=== PATIENT | female | born 2000 | race Caucasian/White ===

== ENCOUNTER 2024-01-25 13:14 | Outpatient (CLI) | payer OTHER, MEDICAID, SELFPAY ==
[2024-01-25 14:43] LABS: Hematocrit 36.4 % (37.0-47.0); Hemoglobin 11.5 g/dL (12.0-15.0); Immature Platelet Fraction Pct 17.7 % (0.9-11.2); Mean Corpuscular HGB Conc 31.6 g/dl (32-36); Mean Corpuscular Hemoglobin 26.3 pg (26-34); Mean Corpuscular Volume 83.1 fl (80-100); Mean Platelet Volume 13.5 fl (7.4-10.4); Platelet Count Result 134 k/mm3 (150-375); Red Blood Count 4.38 M/mm3 (4.2-5.4); White Blood Count 11.2 K/mm3 (4.5-10.0)
[2024-01-26 16:01] LABS: Rapid Plasma Reagin Non-Reactive (NonReactive)
== END 2024-01-25 13:15 | disposition home or self-care (01) ==
LOC: ANHLAB 13:16
PROVIDERS: Visit Provider Obstetrics & Gynecology
DX: O82 Encounter for cesarean delivery without indication (principal); Z3A.00 Weeks of gestation of pregnancy not specified
CPT/HCPCS: 36415; 85027; 85055; 86592; 86850; 86900; 86901

== ENCOUNTER 2024-01-26 05:26 | Inpatient (IN) | payer OTHER, MEDICAID, SELFPAY ==
[2024-01-26] VITALS (45 sets, daily range): BP systolic 110–172; BP diastolic 63–125; PULSE 50–114; RESP 14–18; TEMP 36.4–36.9; O2SAT 92–100; BMI 31.5
[2024-01-26] MEDS: ACETAMINOPHEN 500 MG TABLET 1000 MG PO (06:01)
[2024-01-26] MEDS: LACTATED RINGERS 1,000 ML 125 ML IV CONT ×2 (06:02→07:15)
--- NOTE | 2024-01-26 06:12 | LDADM ---
This patient, Mary Jo Oliver, was admitted to Labor/Delivery/Recovery 120 on 01/26/24 at 05:26. Plans for labor, pain management and were discussed with patient. Patient/family oriented to hospital policies and general routines including ID bracelet, bed and alarms, visiting hours, pain management, procedures, bathroom and other care routines, personal items, smoking policy, room service/diet and guest tray routines, infant security routines, and visiting hours. Patient/Family are encouraged to report perceived risks to care and to ask questions if they do not understand what they are told or what they should do. See OBIX for further documentation.
[2024-01-26 07:02] LABS: HIV 1/2 Ab P24 Ag Result Negative (Negative)
--- NOTE | 2024-01-26 07:13 | P.PNAN_ITS ---
Anes - Initial Pre Proc Eval Procedure: Operation Date: 01/26/24 07:30 Proposed Procedures p Section - Narciso Jung MD Date/Time: 01/26/24 07:13 Surgeon: Narciso Jung MD Pre Op Diagnosis: C/S Patient Data Age: 23 Gender: F Height: 1.57 m Weight: 78.25 kg Last Vital Signs Pulse 67 01/26/24 07:00 BP 138/89 01/26/24 07:00 O2 Del Method Room Air 01/26/24 06:12 Allergies Allergy/AdvReac Type Severity Reaction Status Date / Time No Known Allergies Allergy Verified 01/18/24 15:36 Home Medications Medication Instructions Recorded Confirmed Type prenat.vits,radha,kty-vmda-cwpid 1 tablet 01/18/24 History valacyclovir 500 mg tablet 500 mg PO Q12H 01/18/24 01/18/24 History Laboratory Tests 01/26/24 06:07 HIV 1&2 Ab/P24 Ag 4thGn Negative (Negative) Patient hx anesthesia problems: none Family hx anesthesia problems: none Results Review: All pre-operative results and documents have been reviewed as part of the pre- operative evaluation. [facility] Family History Family History Other Patient denies significant medical history Social History Social History Smoking status: Former smoker Tobacco type: e-cigarettes/vaping Second hand tobacco smoke exposure: No Smoking end date: 06/01/23 Substance use: never Do You Feel Safe in your Home?: Yes Lack of Transportation: No Lack of Food: Never True Current Housing: I Have Housing Concerned About Future Housing: No Difficulty Paying Gas/Electric Bills: No Difficulty Paying for Meds: No Currently Unemployed: No Education: High School Diploma/GED Difficulty w/ Childcare or Family Care: No Spiritual care concerns: No Anes - Eval Final PreProcedure Day of Procedure 01/26/24 07:13 Patient weight: overweight Heart: regular rate and rhythm Lungs: clear to auscultation Airway: Mallampati scale class II Neurological: alert and oriented Last oral intake: >/= 8 hours ASA classification: II Emergent: no Anesthetic plan: proceed Anesthesia type and monitoring: regional spinal and standard monitoring Results Review: All pre-operative results and documents have been reviewed as part of the pre- operative evaluation. Informed Consent: The patient's anesthetic plan and its attendant risks and benefits were discussed with the patient/family/POA. Questions were solicited and answers provided to the satisfaction of the patient/family/POA.
--- NOTE | 2024-01-26 07:21 | PM.IMHP ---
H&P: HPI History of Present Illness Date/Time: 01/26/24 07:21 Chief Complaint: Term Narrative: this patient is a 23-year-old female, 1 at term with recent herpes outbreak. We agreed to perform delivery. The patient understands the details of the procedure. The procedure has been explained in detail. She understands the risks. She understands that injuries may occur that result in hospitalization, more surgery, and severe illness. She understands risk of hemorrhage and infection. She denies any chest pain or shortness of breath. She denies any nausea, vomiting, fever, chills. Review of Systems Review of Systems: All systems reviewed & are unremarkable except as noted in HPI and below Constitutional: Constitutional: Denies chills, Denies fatigue, Denies fever(s) and Denies weakness Eyes: Eyes: Denies blurry vision, Denies change in vision, Denies loss of peripheral vision, Denies loss of vision, Denies other visual disturbances and Denies eye pain ENT: Denies vertigo, Denies dizziness, Denies hearing loss, Denies mouth pain, Denies nasal obstruction, Denies neck mass and Denies neck pain Cardiovascular: Cardiovascular: Denies chest pain, Denies diaphoresis, Denies syncope, Denies leg edema and Denies dyspnea Respiratory: Respiratory: Denies chest congestion, Denies cough, Denies hemoptysis, Denies dyspnea and Denies wheezing Gastrointestinal: Gastrointestinal: Denies abdominal pain, Denies constipation, Denies diarrhea, Denies nausea and Denies vomiting Genitourinary: Genitourinary: Denies hematuria, Denies change in libido, Denies nocturia, Denies genital lesions, Denies flank pain and Denies urinary urgency Musculoskeletal: Musculoskeletal: Denies abnormal gait, Denies back pain, Denies myalgias, Denies arthralgias, Denies joint swelling, Denies muscle weakness and Denies neck pain Integumentary/Breasts: Skin/Breast: Denies swelling, Denies breast pain, Denies breast mass, Denies dry skin, Denies nipple discharge, Denies unusual bruising and Denies jaundice Neurologic: Denies Neuro-related abnormal movements, Denies Abnormal speech present, Denies abnormal gait, Denies behavioral changes, Denies confusion, Denies vertigo, Denies dizziness, Denies syncope, Denies loss of vision, Denies memory loss, Denies convulsions and Denies weakness Psychiatric: Psychiatric: Denies abnormal sleep pattern, Denies behavioral changes, Denies change in libido, Denies confusion, Denies depression, Denies anhedonia and Denies memory loss Endocrine: Endocrine: Reports no additional endocrine complaints, Denies change in libido and Denies fatigue Hematologic/Lymphatic: Hematologic/Lymphatic: Reports no additional hematologic/lymphatic complaints Allergic/Immunologic: Allergic/Immunologic: Reports no additional allergic/immunologic complaints and Denies wheezing PMF Family History Family History Other Patient denies significant medical history Social History Social History Smoking status: Former smoker Tobacco type: e-cigarettes/vaping Second hand tobacco smoke exposure: No Smoking end date: 06/01/23 Substance use: never Do You Feel Safe in your Home?: Yes Lack of Transportation: No Lack of Food: Never True Current Housing: I Have Housing Concerned About Future Housing: No Difficulty Paying Gas/Electric Bills: No Difficulty Paying for Meds: No Currently Unemployed: No Education: High School Diploma/GED Difficulty w/ Childcare or Family Care: No Spiritual care concerns: No Meds Home Medications and Allergies Home Medications Medication Instructions Recorded Confirmed Type prenat.vits,radha,abr-lykh-ztmhv 1 tablet 01/18/24 History valacyclovir 500 mg tablet 500 mg PO Q12H 01/18/24 01/18/24 History Allergies Allergy/AdvReac Type Severity Reaction Statu
[2024-01-26] MEDS: FAMOTIDINE 20 MG/2 ML VIAL IV PUSH (07:22)
[2024-01-26] MEDS: ONDANSETRON INJ 4 MG/2 ML VIAL IV PUSH (07:22)
[2024-01-26] MEDS: ceFAZolin 2 GM/D5W 50 ML 2 GM/50 ML BAG IVPB (07:25)
[2024-01-26] MEDS: OXYTOCIN 30 UNITS/NS 500 ML 30 UNITS/500 ML BAG 125 UNITS IV CONT (09:40)
[2024-01-26] MEDS: ACETAMINOPHEN 325 MG TABLET 650 MG PO ×2 (11:53→18:36)
[2024-01-26] MEDS: KETOROLAC 15 MG/ML VIAL (*BKC) IV PUSH ×2 (11:54→18:39)
[2024-01-26] MEDS: LIDOCAINE 5% PATCH 1 PATCH TRANSDERM (11:55)
[2024-01-26] MEDS: SIMETHICONE 80 MG TAB.CHEW PO ×2 (11:55→18:39)
[2024-01-26] MEDS: valACYclovir HCL 500 MG TABLET PO ×2 (11:55→21:45)
--- NOTE | 2024-01-26 12:54 | OBPPTRN ---
1113 Patient transferred to post room #285 via stretcher. Support person present. Oriented to unit, room, information board, rooming in, admission packet and security measures. Patient verbalizes understanding.
[2024-01-26] MEDS: DEXTROSE 5%/0.45% SOD CHL 1,000 ML 125 ML IV CONT (14:49)
--- NOTE | 2024-01-26 15:09 | PC.NURSE ---
1400 Introductions were made, then consulted with patient to assess needs related to . Mother led the conversation with her?plans to feed?her and the?experience so far as baby is currently in the level 2 nursery. Encouraged understanding of the benefits of skin to skin (demonstrating unwrapping and placing upright on her chest), stimulating with massage touch, changing positions to encourage wakefulness, how to watch for early feeding cues, responsive feeding, feeding on demand (aiming for 8-12 times in 24 hours, about every 2-3 hours), milk production, building/maintaining a milk supply, duration of feeding, signs of adequate intake/output and how to record on the feeding sheet. Mother voiced understanding and wishes to begin pumping to establish milk supply. Resources used for education were facilitated with the [visual educational handouts/ tool/mom and baby guide], Inpatient/outpatient resources provided with feeding sheet, name written on the communication board, and the mom/baby guide. Parents voiced understanding of information, and will call if there is a request for assistance. Reported to the Primary RN.
[2024-01-26] MEDS: DOCUSATE SODIUM 100 MG CAPSULE PO (18:36)
--- NOTE | 2024-01-26 19:30 | PC.NURSE ---
Patient transported via wheelchair to [facility] at this time to visit with .
--- NOTE | 2024-01-26 20:48 | PC.NURSE ---
Patient returned to room #281 via wheelchair at this time and transferred to bed.
[2024-01-27] MEDS: KETOROLAC 15 MG/ML VIAL (*BKC) IV PUSH ×2 (01:21→07:16)
[2024-01-27] MEDS: ACETAMINOPHEN 325 MG TABLET 650 MG PO ×4 (01:22→23:30)
[2024-01-27 04:40] VITALS: BP 122/79; PULSE 77; RESP 18; TEMP 36.8; O2SAT 98
[2024-01-27] MEDS: HYDROcodone/acetaminophen (*CRX) 5-325 MG TABLET 1 TAB PO ×4 (04:44→21:07)
[2024-01-27 05:04] LABS: Basophils Percent Auto 0.3 % (0.2-1.2); Eosinophils Percent Auto 0.3 % (0-4.4); Hematocrit 29.9 % (37.0-47.0); Hemoglobin 9.7 g/dL (12.0-15.0); Immature Granulocyte Absolute 0.05 K/mm3 (0.00-0.031); Immature Granulocyte Percent A 0.5 % (0-0.5); Lymphocytes Percent Auto 23.1 % (18.3-44.2); Mean Corpuscular HGB Conc 32.4 g/dl (32-36); Mean Corpuscular Hemoglobin 26.7 pg (26-34); Mean Corpuscular Volume 82.4 fl (80-100); Mean Platelet Volume 12.7 fl (7.4-10.4); Monocytes Absolute Auto 0.7 K/mm3 (0.1-0.6); Neutrophils Absolute Auto 7.2 K/mm3 (1.3-6.7); Neutrophils Percent Auto 68.8 % (45.5-73.1); Platelet Count Result 103 k/mm3 (150-375); Red Blood Count 3.63 M/mm3 (4.2-5.4); White Blood Count 10.4 K/mm3 (4.5-10.0)
[2024-01-27] MEDS: DOCUSATE SODIUM 100 MG CAPSULE PO ×2 (07:15→16:25)
[2024-01-27] MEDS: POLYSACCHARIDE IRON COMPLEX 150 MG CAPSULE PO ×2 (07:15→16:25)
[2024-01-27] MEDS: MULTIVIT/MIN/PREN/FOL AC/IRON TABLET 1 TAB PO (07:15)
[2024-01-27] MEDS: valACYclovir HCL 500 MG TABLET PO ×2 (07:15→21:08)
[2024-01-27] MEDS: SIMETHICONE 80 MG TAB.CHEW PO ×3 (07:16→16:25)
[2024-01-27 07:50] VITALS: BP 120/85; PULSE 58; RESP 18; TEMP 36.6; O2SAT 100
--- NOTE | 2024-01-27 11:27 | PC.NURSE ---
[id number]. Introductions were made, then consulted with patient to assess needs related to . Mother led the conversation with her?plans to feed?her and the?experience so far. Encouraged understanding of the benefits of skin to skin, stimulating with massage touch, changing positions to encourage wakefulness, how to watch for early feeding cues, responsive feeding, feeding on demand (aiming for 8-12 times in 24 hours, about every 2-3 hours), milk production, building/maintaining a milk supply, duration of feeding, signs of adequate intake/output and how to record on the feeding sheet. Mother works well with her with encouragement and education. Reviewed positioning and ear, shoulder, hip alignment, supporting the breast to facilitate a deep latch, asymmetrical latch (off-center), leading with the chin with a big, open, wide gape and body close to mother. Infant latched optimally to the Right breast in cross cradle position. Education given to the mother of how to visualize the suckling (with good rocking jaw motion), swallows (dropping of the lower jaw) and how to listen for drinking at the breast (the ka sound). was [able/unable] to maintain latch without pain to mother protecting the nipple with optimal positioning and latching. Reviewed comfort measures of healing with a warm, wet washcloth to rinse breast, then leave open to air-dry, good handwashing when or touching the breast/nipples to prevent infection. Mother voiced understanding of talking to infant to encourage if it has been 2 -2.5 hours since the start of the last , to call if does not latch, or if there is discomfort with . Resources used for education were facilitated with the visual educational handouts. Inpatient resources provided with feeding sheet, name written on the communication board, and the mom/baby guide. Parents voiced understanding of information, demonstrated learning and will call if there is a request for assistance. Reported to the Primary RN.
--- NOTE | 2024-01-27 14:20 | WPDANLDPN2 ---
Anes-Prog Note L&D Date/Time: 01/27/24 14:20 Comfortable throughout: section Neuraxial method: spinal Epidural/Spinal procedure site: clean & non-tender Neuro status: Neuro function grossly intact. Cardiovascular status: normal Respiratory status: normal Airway patency: baseline Mental status: baseline Post-Op hydration status: normal Vital Signs: Last Vital Signs Temp 36.6 C 01/27/24 07:50 Pulse 58 L 01/27/24 07:50 Resp 18 01/27/24 07:50 BP 120/85 01/27/24 07:50 Pulse Ox 100 01/27/24 07:50 O2 Del Method Room Air 01/26/24 16:50 Pain score (VAS): 2/10 I/O: Intake & Output 01/26/24 01/27/24 01/27/24 23:59 07:59 15:59 Intake Total 2100 Output Total 400 1450 Balance 1700 -1450 Post-procedural complaints: none Patient feedback: Patient satisfied with anesthetic care.
--- NOTE | 2024-01-27 14:20 | WPDANLDNPN2 ---
Anes-Prog Note L&D-Neuraxial Date/Time: 01/27/24 14:20 Neuraxial medications: intrathecal PF morphine Opiod-related complaints: none Patient feedback: Patient satisfied with post-operative pain management.
[2024-01-27] MEDS: IBUPROFEN 600 MG TABLET PO ×2 (17:50→23:30)
[2024-01-27 21:07] VITALS: BP 112/61; PULSE 68; RESP 18; TEMP 36.8; O2SAT 100
[2024-01-27] MEDS: LIDOCAINE 5% PATCH 1 PATCH TRANSDERM (21:07)
[2024-01-28] MEDS: ACETAMINOPHEN 325 MG TABLET 650 MG PO ×4 (04:56→22:44)
[2024-01-28] MEDS: IBUPROFEN 600 MG TABLET PO ×4 (04:56→22:44)
--- NOTE | 2024-01-28 05:13 | PC.NURSE ---
Upon rounding patient stated that its been 3 1/2 hours since last ate and that she wants to pump at this time and feed what she gets from pumping instead of putting infant to breast. Answered any questions patient had and patient verbalized understanding. Encouraged patient to call out if assistance is needed or if infant has trouble feeding.
[2024-01-28 08:00] VITALS: BP 127/89; PULSE 63; RESP 16; TEMP 36.9; O2SAT 100
--- NOTE | 2024-01-28 08:40 | PM.OBPNVD ---
OB - PN: Subj Subjective Date/time seen: 01/28/24 08:40 Patient comments: no complaints, pain well controlled, incisional pain, tolerating diet and flatus present OB - PN: Obj Data Labs 01/27/24 04:53 OB - PN A/P Plan day: 2 Plan: routine care Comments: POD#2 LTCS - no problems, Time Spent With Patient Time: Total time spent is greater than 50% in coordination of care (as documented) at patient's floor/unit and/or counseling patient: Exam Const: General: comfortable, no acute distress and alert Resp: Effort & Inspection: normal respiratory effort Auscultation: no crackles, no rales and no rhonchi Cardio: Rate: regular rate Heart sounds: no click, no murmurs and no rubs GI: Inspection: non-distended Auscultation: normal bowel sounds Other: Incision - CDI Extrem: General: normal to inspection, no pedal edema and no calf tenderness
--- NOTE | 2024-01-28 08:41 | PM.OBDSVD ---
DS: Admitting Diagnosis Discharge Date January 28, 2024 Admitting Diagnosis term DS: Discharge Diagnosis Discharge Diagnosis (1) delivery delivered: Code(s): O82 - Encounter for delivery without indication Status: Acute OB - DS: Summary OB Procedures : None OB Procedures Intrapartum: OB Procedures: : None Peripartum Data Procedures: Procedures Operation Date: 01/26/24 07:30 Actual Procedure Side Surgeon p Section Bilateral Narciso Jung MD Time Spent with Patient Time attestation: Total time spent providing and/or coordinating discharge services: Discharge Plan Discharge Discharging Clinician: Narciso Jung Patient Disposition: Home, Self-Care Activity: pelvic rest Diet: regular Patient Instructions: Antibiotic Form Stand Alone Forms: General Discharge Information Follow-up/Referrals: Narciso Jung MD [Physician] - Discharge Medications: New oxycodone-acetaminophen 5-325 mg tablet 1 tablet PO Q4H PRN (Reason: pain) Qty: 25 0RF Continued valacyclovir 500 mg Tablet 500 mg PO Q12H #2 Tablet 1 tablet Date of admission: 01/26/24 05:26 Primary Care Provider: UNKNOWN,DOCTOR Admitting Provider: Narciso Jung Attending physician on admission: Narciso Jung Condition: Stable
[2024-01-28] MEDS: POLYSACCHARIDE IRON COMPLEX 150 MG CAPSULE PO ×2 (08:54→17:13)
[2024-01-28] MEDS: valACYclovir HCL 500 MG TABLET PO ×2 (08:54→21:34)
[2024-01-28] MEDS: MULTIVIT/MIN/PREN/FOL AC/IRON TABLET 1 TAB PO (08:54)
[2024-01-28] MEDS: DOCUSATE SODIUM 100 MG CAPSULE PO ×2 (08:54→17:13)
[2024-01-28] MEDS: SIMETHICONE 80 MG TAB.CHEW PO ×3 (08:54→17:13)
--- NOTE | 2024-01-28 11:30 | PC.NURSE ---
Introductions were made, then consulted with patient to assess needs related to . Mother states infant is very sleepy and will latch but does not suck well after latching. Encouraged mother to keep awake, how to watch for early feeding cues, milk production, building/maintaining a milk supply, duration of feeding, signs of adequate intake/output and how to record on the feeding sheet. Mother works well with her with encouragement and education. Mother is pumping after attempts and supplementing with expressed milk. Reviewed positioning and signs of a deep latch, when to call if infant does not latch, or if there is discomfort with . Mother voiced understanding of information, demonstrated learning and will call if there is a request for assistance. Reported to the Primary RN.
--- NOTE | 2024-01-28 15:15 | PC.NURSE ---
Patient called out with questions. She pumped after for 15 minutes. She had about 6ml of pumped milk to give baby and was unsure if she should give all of it at this time. Educated on use and storage of breastmilk and encouraged mother to feed all the milk if is still rooting. If mother wants to keep a small amount of breastmilk to help waken infant and entice him to the breast at the next feeding, she may leave it at room temperature for up to 4 hours. Mother agreeable and declines further questions at this time.
[2024-01-28 21:31] VITALS: BP 118/73; PULSE 64; RESP 18; TEMP 36.4; O2SAT 100
[2024-01-28] MEDS: LIDOCAINE 5% PATCH 1 PATCH TRANSDERM ×2 (21:34→22:46)
[2024-01-29] MEDS: IBUPROFEN 600 MG TABLET PO (05:18)
[2024-01-29] MEDS: ACETAMINOPHEN 325 MG TABLET 650 MG PO (05:18)
--- NOTE | 2024-01-29 07:42 | PM.OBPNVD ---
OB - PN: Subj Subjective Date/time seen: 01/29/24 07:42 Interval history: pp day 3 doing well desires discharge OB - PN: Obj Data Labs 01/27/24 04:53 OB - PN A/P Plan day: 3 Plan: routine care and discharge home Time Spent With Patient Time: Total time spent is greater than 50% in coordination of care (as documented) at patient's floor/unit and/or counseling patient: Review of Systems Review of Systems: All systems reviewed & are unremarkable except as noted in HPI and below Exam Const: General: cooperative and healthy appearing Chest: Chest palpation & inspection: normal inspection of the chest Resp: Effort & Inspection: normal respiratory effort Cardio: Rate: regular rate Rhythm: regular rhythm Back/Spine/Pelvis: Back: no CVA tenderness Skin: General skin exam: normal color Neuro: General: patient oriented x3 Extrem: General: normal to inspection Right lower extremity: normal to inspection Left lower extremity: normal to inspection Psych: Appearance: grossly normal
--- NOTE | 2024-01-29 07:43 | PM.OBDSVD ---
DS: Admitting Diagnosis Discharge Date 01/29/24 Admitting Diagnosis repeat section DS: Discharge Diagnosis Discharge Diagnosis (1) delivery delivered: Code(s): O82 - Encounter for delivery without indication Status: Acute OB - DS: Summary OB Procedures : None OB Procedures Intrapartum: OB Procedures: : None Peripartum Data Procedures: Procedures Operation Date: 01/26/24 07:30 Actual Procedure Side Surgeon p Section Bilateral Narciso Jung MD Time Spent with Patient Time attestation: Total time spent providing and/or coordinating discharge services: Discharge Plan Discharge Attending physician on discharge: marcos Discharging Clinician: Narciso Jung Patient Disposition: Home, Self-Care Activity: pelvic rest Diet: regular Patient Instructions: Antibiotic Form Stand Alone Forms: General Discharge Information Follow-up/Referrals: Narciso Jung MD [Physician] - Discharge Medications: New oxycodone-acetaminophen 5-325 mg tablet 1 tablet PO Q4H PRN (Reason: pain) Qty: 25 0RF Continued valacyclovir 500 mg Tablet 500 mg PO Q12H #2 Tablet 1 tablet Date of admission: 01/26/24 05:26 Primary Care Provider: UNKNOWN,DOCTOR Admitting Provider: Narciso Jung Attending physician on admission: Narciso Jung Condition: Stable
[2024-01-29] MEDS: POLYSACCHARIDE IRON COMPLEX 150 MG CAPSULE PO (08:39)
[2024-01-29] MEDS: valACYclovir HCL 500 MG TABLET PO (08:39)
[2024-01-29] MEDS: MULTIVIT/MIN/PREN/FOL AC/IRON TABLET 1 TAB PO (08:40)
[2024-01-29] MEDS: SIMETHICONE 80 MG TAB.CHEW PO (08:40)
[2024-01-29] MEDS: DOCUSATE SODIUM 100 MG CAPSULE PO (08:40)
--- NOTE | 2024-01-29 08:49 | PC.NURSE ---
Per patient's primary RN, patient has been bottle feeding and pumping for the last 3 feedings. RN offered patient assistance from the RN and the patient declined the need for any further education or assistance. Patient has mom/baby guide as a reference and knows support is available if she needs any further assistance.
[2024-01-29 09:07] VITALS: BP 131/73; PULSE 79; RESP 20; TEMP 36.6; O2SAT 99
[2024-01-30 09:23] VITALS: BP 132/79; PULSE 78; RESP 18; TEMP 36.7; O2SAT 100
--- NOTE | 2024-02-06 21:15 | W.PM.OBCSD ---
OB - Delivery Note Procedure Delivery date: 01/26/24 Pre-op diagnosis: Other ( herpes outbreak) Post-op Diagnosis: Same Procedure Performed: Primary Surgeon: Narciso Jung MD Anesthesia type: Spinal Description of Procedure/Findings: The patient was taken the operating room.? She was prepped and draped in dorsal supine position with a leftward tilt.? This was done after spinal anesthetic was applied.? A low-transverse skin incision was made and carried down till of the fascia with the knife.? The fascial incision was made with the knife.? The fascial incision was extended laterally with Lopez scissors.? The fascia was tented upward superiorly and inferiorly the rectus muscles were dissected off bluntly.? The rectus muscles were the midline.? The preperitoneal fat and peritoneum were dissected open bluntly at the superior aspect of the rectus muscles.? The peritoneal incision was extended superior and inferior with good position of bladder.? The uterine incision was made with a scalpel down to the level of the amniotic cavity.? The amniotic cavity was entered bluntly.? The infant was delivered.? The cord was clamped and cut and the infant was handed off to waiting pediatric staff.? Cord bloods were obtained.? The placenta was removed manually.? The uterus was exteriorized.? The uterus was cleared of all clots, debris and membranes.? The uterus was closed in 0 Vicryl running lock fashion.? An imbricating over a was placed along the incision line as well.? The uterus was returned to the abdomen.? The gutters were cleared of all clots and debris.? The fascia was closed with 0 Vicryl running fashion.? The subcutaneous tissue was irrigated pinpoint bleeders were cauterized.? The skin was closed with subcuticular absorbable carla.? The skin incision line was covered with glue.? The patient tolerated the procedure well.? She has taken recovery room in stable condition.? Sponge lap and needle counts were correct x2.? Urine Output: 800 [place] Baby Date of : 01/26/24 Weeks of gestation at delivery: 39
== END 2024-01-29 11:38 | disposition home or self-care (01) | DRG 788 ==
LOC: ANHLDR 05:29 → ANHOB2 11:16
PROVIDERS: Admitting Provider Obstetrics & Gynecology; Visit Provider Obstetrics & Gynecology
PROC: 10D00Z1 Extraction of Products of Conception, Low, Open Approach (ICD-10-PCS; CPT 59514; principal; 2024-01-26 07:30)
DX: O98.52 Other viral diseases complicating childbirth (principal); B00.9 Herpesviral infection, unspecified; O69.81X0 Labor and delivery complicated by cord around neck, without compression, not applicable or unspecified; Z3A.39 39 weeks gestation of pregnancy; Z37.0 Single live birth; Z87.891 Personal history of nicotine dependence
CPT/HCPCS: 36415; 85025; 86703; A9270; G0432; J0690; J1885; J2274; J2405; J2590; J7120